=== PATIENT | female | born 1945 | race Caucasian/White ===

== ENCOUNTER 2016-10-23 03:53 | Inpatient (IN) | payer OTHER ==
--- NOTE | ~2016-10-23 | EKG ---
PATIENT: KRISTEL HALEY UNIT #: [id number] Ventricular Rate: 174 BPM Atrial Rate: 174 BPM QRS Duration: 80 ms Q-T Interval: 228 ms QTC Calculation(Bezet): 387 ms Calculated R [place]: 24 degrees Calculated T [place]: -138 degrees Diagnosis Line: Atrial fibrillation with rapid ventricular Diagnosis Line: response Diagnosis Line: Marked ST abnormality, possible inferior Diagnosis Line: subendocardial injury Diagnosis Line: Abnormal ECG Diagnosis Line: When compared with ECG of 23-OCT-2016 08:58, Diagnosis Line: Atrial fibrillation has replaced Sinus rhythm Diagnosis Line: Vent. rate has increased BY 89 BPM Diagnosis Line: ST now depressed in Anterior leads Diagnosis Line: Significant changes have occurred Diagnosis Line: Confirmed by LAURI CORRIGAN MD ([id number]) on Diagnosis Line: 10/30/2016 3:53:37 PM INTERPRETING MD: SIS
--- NOTE | ~2016-10-23 | A ---
[facility] Nutrition Therapy DATE: 11/02/16 Patient: KRISTEL HALEY Physician: ROSELYN Address: [address] [facility] Room/Bed: [address] [place] [address], Zip: [place] [address] Admit Date: 10/23/16 Date of : 46 Height: 5 3 Weight: 211 96 NUTRITIONAL ASSESSMENT: REASON: LOS NUTRITION ASSESSMENT 70 yo female admitted for abdominal pain 2' fecal impaction PMH: COPD, obese, hypothyroid, HTN, IBS, anemia, BL knee arthritis, psoriasis, MEDHAT, HLD, smoker, tricuspid regurgitation, GERD, chronic immobility Anthropometrics: Ht: 63" Adm wt: 98.2 kg BMI: 38.3 Wt 11/02: 96 kg Labs: K+ 3.4 Gluc 134 GFR 57.5 Meds: NaCl, furosemide, phenergan, miralax, synthroid, protonix, zofran, prednisone I/O & Bowel function: 1168/4625, last BM 11/01- diarrhea noted Skin Integrity: Psoriasis rash BLE/ BUE Bruises BUE Edema: none noted Diet: NPO for heart cath Assessment: Chart reviewed, events noted. 70 yo female admitted for abdominal pain d/t fecal impaction. Pt seen for LOS nutrition assessment. Pt is currently NPO awaiting heart cath procedure, and was ordered a consistent carbohydrate/ 1800 kcal diet prior to that. RD unsure why the pt was placed on a consistent carb diet, as she has no apparent history of DM. It is possible that she was placed on this diet due to medication induced hyperglycemia (prednisone noted). Of note, the pt is now s/p colonscopy and polypectomy. EGD results reveal mild diverticulosis. RD spoke with the pt at bedside. Pt denies having any h/o DM, and states that she thought she was on a heart healthy diet. Pt reports poor appetite and ~50% intake of meals, and denies any weight loss besides any she may have lost since admission. When RD inquired about the pt's decreased appetite she stated "I just want to go home". RD encouraged adequate nutritional intake, use of heart healthy and increased fiber diet strategies due to fecal impaction and diverticulosis. Pt voiced understanding, and is agreeable to Magic Cup supplements. RD will order once the pt's diet advances. Dx: Suboptimal nutritional intake RT decreased appetite, pt desire to go home AEB pt reported ~50% intake of meals. [facility] Nutrition Therapy DATE: 11/02/16 Patient: KRISTEL Washington TERA Physician: ROSELYN Address: [address] [place] [address] Room/Bed: [address], Zip: [place] [address] Admit Date: 10/23/16 Date of : 46 Height: 5 3 Weight: 211 96 Intervention: 1. Heart healthy diet with adequate fiber once diet resumed 2. Magic Cup BID 3. Supplement fiber as needed Monitoring, Evaluation and Goals: 1. Oral intake; tolerate >50% of meals 2. GI; promote regular GI function 3. Weight; prevent unintentional weight loss, promote gradual weight loss once as appropriate Recommendations: 1. Once diet is resumed, discontinue consistent carbohydrate restriction and add heart healthy restriction to diet. 2. Encouraged adequate fiber intake as instructed by RD. Pt may benefit from supplemental fiber to promote regular GI function. 3. Once the pt's diet is resumed, please order Magic Cup BID for supplemental nutrition. Pt is at mild nutritional risk. RD will follow up per protocol. Respectfully, JUD MICHELLE RD, LD [facility] cc: client file
--- NOTE | ~2016-10-23 | DS ---
Unit #: [id number] #: [id number] Patient: KRISTEL HALEY [id number] [address] [place], [place] [address] [id number] I MR#: [id number] NAME: KRISTEL HALEY. ROOM: 323 Age: 70 Sex: F Admission Date: 10/23/2016 : 1945 Discharge Date: 11/03/2016 Attending Physician: Cely Greenfield M.D. DISCHARGE SUMMARY REASON FOR ADMISSION Fecal impaction/abdominal pain. Please see Discharge Summary dictated from October 28, 2016, for initial part of the hospital stay. Patient was clinically stable for discharge. Unfortunately, on a rhythm strip she began developing (1) fibrillation with a rapid ventricular response. Therefore, cardiology services were asked to reevaluate the patient. Unfortunately, she could not be placed on anticoagulation secondary to her decreased hemoglobin between 7 to 8. Therefore, recommendation was made for the patient to undergo lower colonoscopy. We asked Dr. Nye to reevaluate the patient, and on October 30, 2016, patient underwent colonoscopy which did reveal a single polyp in the proximal descending colon. Diverticulosis was noted. Otherwise, there was no other acute process. This cleared the way for the patient to undergo cardiac catheterization which she underwent yesterday which showed only minimal disease. Please see cardiac catheterization report for complete details. This was performed by Dr. Prescott. Patient was subsequently cleared from a cardiac standpoint for discharge. Today, her hemoglobin currently stands at 11.2. It is noted that she does have a decreased MCV at 69. Clinically speaking, she is stable to be transitioned to rehab. She requires extensive followup as detailed above. FINAL DISCHARGE DIAGNOSES 1. Abdominal pain on admission, now resolved. 2. Fecal impaction on admission, now resolved. 3. Atrial fibrillation with rapid ventricular response. 4. Dyspnea likely secondary to chronic deconditioning. 5. Anemia, baseline hemoglobin between 9 and 10. 6. Severe morbid obesity. 7. Chronic immobility syndrome. 8. Anemia multifactorial in origin. 9. Iron deficiency. 10. Severe chronic obstructive pulmonary disease, end-stage, on home oxygen. 11. Probable obstructive sleep apnea. 12. Moderate pulmonary hypertension. 13. Moderate to severe tricuspid regurgitation. 14. Psoriasis. 15. Possible psoriatic arthritis. Unit #: [id number] #: [id number] Patient: KRISTEL HALEY 16. Hypothyroidism. 17. Hyperlipidemia. 18. Hypertension. 19. Acute kidney injury, now resolved. 20. Tobacco abuse. 21. Major depressive disorder. 22. Bilateral knee osteoarthritis. 23. Significant anxiety/generalized anxiety disorder. FINAL DISCHARGE MEDICATIONS 1. DuoNeb aerosol solution q.6 hours scheduled. 2. Prednisone 40 mg p.o. q.a.m. x5 days. 3. Amiodarone 200 mg p.o. daily. 4. Cymbalta 60 mg p.o. daily. 5. Benadryl 25 mg p.o. b.i.d. p.r.n. 6. Phenergan 12.5 mg p.o. q.4 p.r.n. 7. Lipitor 80 mg p.o. at bedtime. 8. NicoDerm transdermal 21 mg q.24. 9. Dulera 200/5 at 2 puffs b.i.d. 10. MiraLax as directed daily. 11. Lasix 40 mg p.o. b.i.d. 12. Hydralazine 50 mg p.o. b.i.d. 13. Melatonin 3 mg p.o. at bedtime. 14. Aspirin 81 mg p.o. daily. 15. Prilosec 40 mg p.o. daily. 16. Potassium chloride 20 mEq p.o. daily. 17. Daliresp 500 mcg p.o. daily. 18. Synthroid 100 mcg p.o. daily. 19. [place] 5/325 at 1 tablet p.o. q.6 p.r.n. DISCHARGE CONDITION Stable. DISCHARGE DISPOSITION Rehab. FOLLOWUP As detailed above. Dictated by... Praveen Marcelino/corrine TD: 11/03/2016 14:21 JOB #: [id number] DISCHARGE SUMMARY Page 1 of 1 X Cely Greenfield MD X DISCHARGE SUMMARY
--- NOTE | ~2016-10-23 | OR ---
Unit #: [id number] #: [id number] Patient: KRISTEL HALEY [id number] [address] [place], [place] [address] [id number] I MR#: [id number] NAME: KRISTEL HALEY ROOM: 323 Date of Procedure: 10/25/2016 Admission Date: 10/23/2016 Surgeon: Braydon Nye M.D. : 1945 Attending Physician: Cely Greenfield M.D. OPERATIVE REPORT PRIMARY CARE PHYSICIAN Dr. Cely Greenfield. PREOPERATIVE DIAGNOSIS Severe iron deficiency anemia. PROCEDURE PERFORMED Upper gastrointestinal endoscopy. POSTOPERATIVE DIAGNOSIS Diagnose completely normal examination up to third part of duodenum. RECOMMENDATIONS The patient is not a surgical candidate therefore suggest to manage with symptomatic treatment for now. Also, resume 1800 calorie CCD diet. SEDATION USED MAC. DESCRIPTION OF PROCEDURE Following detailed explanation of the potential risks and complications of an upper endoscopy, namely perforation, bleeding, and complication related to sedation, the patient was brought to GI lab and laid in the left lateral decubitus position. Lubricated tip of the Olympus video upper endoscope was passed through the bite block into the proximal esophagus under direct vision. The entire esophageal mucosa was examined and appeared normal. Z-line was nicely demarcated, there being no esophagitis or hiatus hernia. The scope was then advanced into the gastric cavity and the latter was insufflated. Mucosa of the fundus, body, and antrum was examined and appeared unremarkable. Pylorus was intubated with visualization of the normal duodenal bulb and second and third part of the duodenum. Upon withdrawal and retroflexion; incisura, cardia, and greater curve was examined and no additional findings were noted. The scope was then withdrawn in the distal esophagus. Entire esophageal mucosa was examined all the way up to pharynx. No additional findings were noted. The patient tolerated the procedure without any postprocedure complications. Dictated by... Braydon Nye M.D. Unit #: [id number] #: [id number] Patient: KRISTEL HALEY RIZWANA/joel TD: 10/29/2016 17:07 JOB #: [id number] Brenda Bhakta M.D. OPERATIVE REPORT Page 1 of 1 X Braydon Nye MD PROCEDURE OPERATIVE NOTE
--- NOTE | ~2016-10-23 | DS ---
Unit #: [id number] #: [id number] Patient: KRISTEL HALEY [id number] [address] [address] [id number] MR#: [id number] NAME: KRISTEL HALEY. ROOM: 323 Age: 70 Sex: F Admission Date: 10/23/2016 : 1945 Discharge Date: 11/04/2016 Attending Physician: Cely Greenfield M.D. Primary Care Physician: No Primary Care Physician DISCHARGE SUMMARY THIRD DISCHARGE ADDENDUM Please see the above 2 discharge summaries for details of hospital course. Overnight while we were awaiting our precertification for rehab placement, patient became very agitated, belligerent at staff members, refused to work with therapy, and stated that she no longer wished to go to rehab. She no longer wished to be in the hospital. She also stated that she wanted to go home. I tried to discuss with her the importance of going to rehab, and the importance of trying to ambulate again. She expressed understanding, and stated that she wished to go home. She understood the long-term consequences, and therefore, at this point in time, secondary to the patient's wishes, the patient will be discharged home. Overall, her long-term prognosis is very poor. Her life expectancy is likely less than 6 months. This has been reviewed with patient in detail. She states that she will "think about taking her medications." FINAL DISCHARGE DIAGNOSIS Please see above. FINAL DISCHARGE MEDICATIONS Remain unchanged. Dictated by... Praveen Marcelino/isamar TD: 11/04/2016 19:53 JOB #: [id number] DISCHARGE SUMMARY Page 1 of 1 X Cely Greenfield MD X DISCHARGE SUMMARY
--- NOTE | ~2016-10-23 | CR170 ---
[facility] A Service of [facility] & [facility] RADIOLOGY TEXT RESULTS PATIENT: KRISTEL HALEY LOCATION: [facility] 323-01 : [birth year] UNIT #: [id number] AGE: [address]: Evelina Mejia MD SEX: F ORDER DR: [id number] [facility] [address]. [place], [place] [address] [id number] I MR#: [id number] Acc #: [id number] NAME: KRISTEL HALEY. : 1945 SEX: F STUDY DATE/TIME: 10/24/2016 14:33 UNIT: [address] ROOM: [facility] STUDY DESCRIPTION: CR Knee 2 Views Rt Attending Physician: Evelina Mejia M.D. Ordering Physician: Cely Greenfield M.D. Primary Care Physician: No Primary Care Physician MEDICAL IMAGING REPORT This report is preliminary unless electronic signature is present EXAM Right knee, 2 views, 10/24/16. COMPARISON 09/05/15 CLINICAL HISTORY Right knee pain, symptoms new onset today and unable to move. FINDINGS There are advanced degenerative changes and there is osteopenia, but there is no fracture or apparent joint effusion. Dictated by... Harrison Zacarias M.D. THIS IS AN ELECTRONICALLY VERIFIED REPORT Harrison Zacarias M.D. at 10/24/2016 10:46 PM ALEXIA/isamar TD: 10/24/2016 21:39 JOB #: [id number] MEDICAL IMAGING REPORT Page 1 of 1 COPY
--- NOTE | ~2016-10-23 | EKG ---
PATIENT: KRISTEL HALEY UNIT #: [id number] Ventricular Rate: 68 BPM Atrial Rate: 68 BPM P-R Interval: 122 ms QRS Duration: 84 ms Q-T Interval: 372 ms QTC Calculation(Bezet): 395 ms P [place]: 61 degrees Calculated R [place]: 28 degrees Calculated T [place]: 49 degrees Diagnosis Line: Sinus rhythm with Premature supraventricular Diagnosis Line: complexes Diagnosis Line: When compared with ECG of 29-OCT-2016 00:19, Diagnosis Line: (unconfirmed) Diagnosis Line: Sinus rhythm has replaced Atrial fibrillation Diagnosis Line: Vent. rate has decreased BY 106 BPM Diagnosis Line: ST no longer depressed in Inferior leads Diagnosis Line: ST no longer depressed in Anterolateral leads Diagnosis Line: T wave inversion no longer evident in Inferior Diagnosis Line: leads Diagnosis Line: Nonspecific T wave abnormality has replaced Diagnosis Line: inverted T waves in Lateral leads Diagnosis Line: Confirmed by LAURI CORRIGAN MD ([id number]) on Diagnosis Line: 10/30/2016 4:13:57 PM INTERPRETING MD: SIS
--- NOTE | ~2016-10-23 | CO ---
Unit #: [id number] #: [id number] Patient: KRISTEL HALEY [id number] [address] [place], [place] [address] [id number] I MR#: [id number] NAME: KRISTEL HALEY. ROOM: 323 Age: 70 Sex: F Admission Date: 10/23/2016 : 1945 Attending Physician: Cely Greenfield M.D. Consultation Date: 10/25/2016 CONSULTATION REPORT REASON FOR CONSULTATION Murmur and usfonmbo-sk-oasmqx tricuspid regurgitation. HISTORY OF PRESENT ILLNESS The patient is a 70-year-old female, who does not have a senior it engineer. She denies ever having any history of irregular heart rhythm, myocardial infarction, or cardiac catheterization. The patient does report that she has been told that she has a heart murmur for approximately 25 years. On 10/24/2016, the patient had a 2D echocardiogram done, which showed an EF of 60%, impaired LV relaxation, moderately dilated RV, vjupfplx-eh-jvusml TR with an RSVP of 58 mmHg. Additional past medical history includes hypertension, hyperlipidemia, irritable bowel syndrome, GERD, psoriasis, depression, and obesity. Apparently, she does also have a history of obstructive sleep apnea and she is noncompliant with CPAP. The patient endorses that she has been smoking one pack of cigarettes per day since the age of 13. The patient presented to the hospital. She had a 1 week history of intermittent pain "on the lateral sides of her stomach." At first, the patient reported that she is concerned about having like issues with her kidney. She denies any vomiting or diarrhea. She did report that her last bowel movement was four days prior to admission. The patient does endorse that she typically does fluctuate between diarrhea and constipation because of her irritable bowel syndrome. She does report that she took jcrn-vxr-qomfdrf antidiarrheal medications and subsequently, has had no more bowel movements. She denies any fever, cough, shortness of breath, or chest pain. She also has noticed a little bit of decreased urine output. In the emergency department, the patient's initial pulse was found to be 118 and blood pressure is 169/83. CT scan of the abdomen and pelvis shows extensive fecal burden throughout the colon, consistent with constipation. She was manually disimpacted. She was admitted to [facility] for further evaluation. She was given a total of 2 L of normal saline and started on 4.5 g of Zosyn. Cardiology was consulted for her heart murmur and this findings of indbntqp-fo-vzqhrb tricuspid regurgitation on 2D echocardiogram from 10/24/2016. PAST MEDICAL HISTORY 1. 2D echocardiogram from 10/24/2016 shows an EF of 60%, impaired LV relaxation, moderately dilated RV, bomuhfie-ya-zpyxdd TR with an RSVP of 58 mmHg. 2. Hypertension. 3. Hyperlipidemia. Unit #: [id number] #: [id number] Patient: KRISTEL HALEY 4. Murmur x25 years. 5. Hypothyroidism. 6. Irritable bowel syndrome. 7. GERD. 8. Psoriasis. 9. Depression. 10. Noncompliant with CPAP. 11. Obesity. 12. Tobaccoism. PAST SURGICAL HISTORY 1. EGD and colonoscopy. 2. Left breast biopsy. 3. Left ankle surgery. ALLERGIES Sulfa and cimetidine. HOME MEDICATIONS Synthroid 75 mcg p.o. daily; aspirin 81 mg p.o. daily; Prilosec 40 mg p.o. daily; atorvastatin 80 mg p.o. daily; Cymbalta 60 mg p.o. daily; diphenhydramine 25 mg p.o. daily p.r.n.; and pain medication, type unknown. FAMILY HISTORY The patient endorses that her mother had COPD. Denies any cardiac history. SOCIAL HISTORY The patient lives with her son. She smokes approximately one pack of cigarettes per day and has been smoking since the age of 13. She denies any alcohol abuse. She uses a wheelchair. REVIEW OF SYSTEMS A 10-point review of systems has been done and this has been felt otherwise negative unless indicated in the HPI. PHYSICAL EXAMINATION GENERAL: The patient is awake, alert, in no acute distress. VITAL SIGNS: Temperature 97.8, heart rate 69, respirations 18, and blood pressure 142/54. She is oxygenating 98%. HEENT: Head is atraumatic and normocephalic. Pupils are equal, round, and reactive. Extraocular movements are intact. No discharge from ears or nares. NECK: Supple. Trachea is midline. Negative JVD. Normal carotid upstrokes. No lymphadenopathy or thyromegaly appreciated. CHEST: Diminished with expiratory wheezes. No rhonchi. CARDIOVASCULAR: S1 and S2. Regular rate and rhythm. No gallops are appreciated. The patient has a 2/6 systolic murmur. ABDOMEN: Soft, nontender, and nondistended. Bowel sounds are positive in all four quadrants. SKIN: Appears to be warm and dry. She does have psoriasis and plaques throughout her body. EXTREMITIES: No clubbing, edema, or cyanosis. NEUROLOGIC: The patient is alert and oriented x3. She is pleasant and conversant with no focal deficits. DIAGNOSTIC STUDIES LABORATORY RESULTS: White blood cells 10.5, hemoglobin 7.4, hematocrit 24.7, and platelets 200. Sodium 138, potassium 3.4, chloride 106, CO2 of Unit #: [id number] #: [id number] Patient: KRISTEL HALEY 25, BUN 17, creatinine 1, glucose 124. TSH is 4.92. CRP is 3.7. CARDIOVASCULAR STUDIES: EKG shows sinus rhythm. IMAGING STUDIES: CT scan of her abdomen and pelvis shows extensive burden throughout the colon. There is no evidence of mechanical bowel obstruction. ASSESSMENT 1. Fecal impaction. 2. Vobxqfop-ct-nghqgy pulmonary hypertension. 3. Severe chronic obstructive pulmonary disease. 4. Tricuspid regurgitation. 5. Left ventricular ejection fraction is 60% per echo on 10/24/2016. 6. Hypothyroidism. 7. Hypertension. 8. Hyperlipidemia. 9. Irritable bowel syndrome. 10. Psoriasis. 11. Tobaccoism. PLAN At this time, we will check a BMP, magnesium, and lipid panel in the morning. We will give the patient Solu-Medrol stat for her wheezing. She will need a short course of steroids to treat bronchospasm. May need to consider a Lexiscan when her lung sounds better. She has been encouraged to quit smoking. Dictated by... Dafne Villar A.P.R.N. for Adam Childs M.D. AM/joel TD: 10/26/2016 13:37 JOB #: [id number] CONSULTATION REPORT Page 1 of 1 X Dafne Villar APRN X CONSULTATION REPORT
--- NOTE | ~2016-10-23 | CT4 ---
[facility] A Service of [facility] & [facility] RADIOLOGY TEXT RESULTS PATIENT: KRISTEL HALEY LOCATION: [facility] 323-01 : [birth year] UNIT #: [id number] AGE: [address]: Evelina Mejia MD SEX: F ORDER DR: [id number] [place] [id number] [facility]. [place], [place] [address] [id number] MR#: [id number] Acc #: [id number] NAME: KRISTEL HALEY. : 1945 SEX: F STUDY DATE/TIME: 10/23/2016 7:36 UNIT: TOM ROOM: STUDY DESCRIPTION: CT Abd and Pelv Wo Cont Attending Physician: Tha Florentino M.D. Ordering Physician: Gracia Thao M.D. Primary Care Physician: Primary Care Physician No MEDICAL IMAGING REPORT This report is preliminary unless electronic signature is present EXAM CT of the abdomen and pelvis without contrast INDICATION Mid abdominal pain and no bowel movement for [address] images obtained from the diaphragm through symphysis pubis. No oral or intravenous contrast material was administered in this patient with a history of constipation. This CT exam was performed with one or more of the following radiation dose reduction techniques: automatic exposure control, adjustment of mA and/or kV according to patient size, and iterative reconstruction. FINDINGS Images through the lung bases demonstrates some background emphysematous changes. The stomach and proximal small bowel are within normal limits. The liver appears unremarkable given unenhanced technique. The gallbladder and spleen are normal as is the pancreas. The patient probably has a parapelvic cyst on the right. Left kidney appears normal as are the adrenal glands. No free fluid or adenopathy is seen within the abdomen. There is no evidence mechanical bowel obstruction. Uterus is surgically absent. Urinary bladder appears normal. Patient does have extensive fecal burden seen throughout the colon in keeping with history of constipation, but again there is no evidence of mechanical small bowel obstruction. No free fluid or adenopathy is seen within the pelvis. Review of bone windows does not demonstrate any aggressive osseous abnormalities. [facility] A Service of [facility] RADIOLOGY TEXT RESULTS PATIENT: KRISTEL HALEY LOCATION: [facility] 323-01 : [birth year] UNIT #: [id number] AGE: [address]: Evelina Mejia MD SEX: F ORDER DR: IMPRESSION 1. Patient is noted to have extensive fecal burden seen through the colon in keeping with history of constipation. However there is no evidence of mechanical bowel obstruction. 2. Parapelvic right renal cyst. 3. Changes of prior hysterectomy. Dictated by... Mirta Balderas M.D. THIS IS AN ELECTRONICALLY VERIFIED REPORT Mirta Balderas M.D. at 10/23/2016 5:53 PM KATRINA/angie TD: 10/23/2016 09:05 JOB #: [id number] MEDICAL IMAGING REPORT Page 1 of 1 COPY
--- NOTE | ~2016-10-23 | CR72 ---
[facility] A Service of [facility] RADIOLOGY TEXT RESULTS PATIENT: KRISTEL HALEY LOCATION: [facility] : 47 UNIT #: [id number] AGE: [address]: Cely Greenfield MD SEX: F ORDER DR: [id number] [facility] [address] [facility] [address]. [place], [place] [address] [id number] MR#: [id number] Acc #: [id number] NAME: KRISTEL HALEY. : 1945 SEX: F STUDY DATE/TIME: 10/30/2016 10:18 UNIT: [address] ROOM: [facility] STUDY DESCRIPTION: CR Chest Single View Portable Attending Physician: Cely Greenfield M.D. Ordering Physician: Robert Ahn M.D. Primary Care Physician: No Primary Care Physician MEDICAL IMAGING REPORT This report is preliminary unless electronic signature is present EXAM Portable chest. 10/30/16 HISTORY Respiratory failure FINDINGS AP right anterior oblique view of the chest presented. COMPARISON STUDIES 03/15/07 FINDINGS Dextroscoliosis of the thoracic spine. Heart mildly enlarged. Lung volumes low. Mildly prominent pulmonary vasculature. Mild linear interstitial prominence in the lungs, more pronounced mid to lower lung zones. Increased peribronchial markings in the central lung zones. The appearance is somewhat nonspecific. Mild interstitial edema could be considered. Bronchitis/ reactive airway disease could be considered. There is no dense airspace disease, pleural effusion or pneumothorax, and no suspicious nodule. Calcified granuloma at the left lung base is stable. Dictated by... Lorenzo Mcdonald M.D. THIS IS AN ELECTRONICALLY VERIFIED REPORT Lorenzo Mcdonald M.D. at 11/04/2016 10:14 AM HARINI/grayson TD: 10/30/2016 12:27 JOB #: [id number] [facility] A Service of [facility] RADIOLOGY TEXT RESULTS PATIENT: KRISTEL HALEY LOCATION: [facility] : 47 UNIT #: [id number] AGE: [address]: Cely Greenfield MD SEX: F ORDER DR: MEDICAL IMAGING REPORT Page 1 of 1 COPY
--- NOTE | ~2016-10-23 | OR ---
Unit #: [id number] #: [id number] Patient: KRISTEL HALEY [id number] [address] [place], [place] [address] [id number] I MR#: [id number] NAME: KRISTEL HALEY ROOM: 323 Date of Procedure: 10/30/2016 Admission Date: 10/23/2016 Surgeon: Braydon Nye M.D. : 1945 Attending Physician: Cely Greenfield M.D. OPERATIVE REPORT PRIMARY CARE PHYSICIAN Brenda Bhakta M.D. PREOPERATIVE DIAGNOSES Severe iron deficiency anemia. The patient also has history of increasing constipation. PROCEDURES PERFORMED Colonoscopy and polypectomy. POSTOPERATIVE DIAGNOSES 1. Single sessile polyp in the proximal descending colon. This was about a centimeter in size and was removed using snare cautery polypectomy. 2. Mild sigmoid and descending colon diverticulosis. 3. Rest of the examination up to cecum and terminal ileum was normal. The quality of the prep was good. No angiodysplasias or vascular malformations were present, and no colon cancer was present. RECOMMENDATIONS The patient can be started on anticoagulation from cardiac standpoint if needed. There is no contraindication to use of anticoagulation. She has already received intravenous iron infusions and should stay on oral iron. SEDATION USED MAC. DESCRIPTION OF PROCEDURE Following detailed explanation of the potential risks and complications of a colonoscopy, namely perforation, bleeding, and complications related to sedation, the patient was brought to GI lab and laid in the left lateral decubitus position. A digital rectal examination was performed, which was normal. Lubricated tip of the Olympus video colonoscope was inserted through the anus and advanced under direct vision. The scope was advanced past rectosigmoid into descending colon. Multiple small to medium-sized diverticula were seen in this area. The scope tip was then navigated all the way up to cecum with visualization of the ileocecal valve and the appendiceal orifice. Last few inches of the terminal ileum were also visualized after intubation of the ileocecal valve and appeared normal. Successive segments of the colonic mucosa were examined upon withdrawal and appeared unremarkable except for a single sessile polyp in the proximal descending colon. This was 1 cm to 1.2 cm in size. It was removed using snare cautery polypectomy. The polyp was retrieved after Unit #: [id number] #: [id number] Patient: KRISTEL HALEY removal and sent for histology. Excellent hemostasis was achieved and photodocumentation was obtained. No additional polyps were noted. The patient did not have any angiodysplasias. Other than the left-sided diverticulosis, no additional abnormalities were noted. The patient did not have any hemorrhoids at anal verge. The scope was then withdrawn and the patient returned to recovery area. She tolerated the procedure without any postprocedure complications. Dictated by... Praveen Dinero/joel TD: 10/30/2016 15:36 JOB #: [id number] Brenda Bhakta M.D. OPERATIVE REPORT Page 1 of 1 X Braydon Nye MD X PROCEDURE OPERATIVE NOTE
--- NOTE | ~2016-10-23 | CO ---
Unit #: [id number] #: [id number] Patient: KRISTEL HALEY [id number] [facility]. [place], [place] [address] [id number] I MR#: [id number] NAME: KRISTEL HALEY. ROOM: 323 Age: 70 Sex: F Admission Date: 10/23/2016 : 1945 Attending Physician: Cely Greenfield M.D. CONSULTATION REPORT HISTORY OF PRESENT ILLNESS This is a pleasant 70-year-old lady, who is admitted to the hospital for bowel problems. She has a long history of irritable bowel syndrome and other medical problems. She had about a week history of abdominal pain, so she came to the ER concerned that she may have a bowel obstruction. While here, it was found that she is anemic and has other medical problems and is currently scheduled for an EGD today. We have been asked to see her for her knees. She has had a long history over 20 years of knee arthritis. She used to see Dr. Escobar before he moved to [place]. She has had steroid injections. She states that at home, she uses an electric scooter to get around. She walks very little. She also has some hip pain. PAST MEDICAL HISTORY Reveal that she has a history of sleep apnea, but does not use her CPAP. She has hypothyroidism, COPD, depression, hyperlipidemia, reflux, and irritable bowel syndrome as well as psoriasis. PAST SURGICAL HISTORY Include ankle surgery in the past, breast surgery, and her EGDs and colonoscopies. SOCIAL HISTORY She lives with her son. She does smoke a pack of cigarettes daily. She denies use of alcohol and as mentioned, she mobilizes with an electric scooter. ALLERGIES She has allergies to sulfa and cimetidine. MEDICATIONS Prilosec, aspirin, Synthroid, Cymbalta, atorvastatin, diphenhydramine. REVIEW OF SYSTEMS HEENT: She denies headaches. Denies blurred vision. She has had no syncopal episodes recently. NECK: She denies any neck pain or swelling. CHEST: She states that she has had no chest pain or shortness of breath. : She has had no frequency or burning on urination. GI: She states she has had abdominal pain mostly on the lateral side or the flank area, but no nausea, vomiting, or diarrhea. EXTREMITIES: Orthopedic complaints include bilateral knees, pain that is aggravated with weightbearing and some lateral hip pain. She denies groin pain. NEUROLOGIC: She denies any numbness, weakness, or loss of muscle strength. Unit #: [id number] #: [id number] Patient: KRISTEL HALEY PHYSICAL EXAMINATION GENERAL: Her exam today reveals that she is alert, awake, resting comfortably in bed. VITAL SIGNS: She is afebrile. Pulse is 69, blood pressure is 142/54. MUSCULOSKELETAL: Her exam of her knees reveals that she does have a small effusion in each knee. Range of motion is about 7 degrees of extension to 100 to 105 degrees of flexion in both knees. Both knees are stable. No erythema is noted and her hips, she has flexion to about 95 to 100 in both hips, full extension abduction of 25 to 30, internal rotation of 5, external rotation of 35 in both hips. IMPRESSION She has chronic osteoarthritis of both knees. I have offered her steroid injections today, but she says she would like to hold off on any treatment of the arthritis until all of her other medical problems were resolved, so she will follow up in the office if she would like to have these injections performed. Dictated by... Praveen Mcclure/joel TD: 10/25/2016 22:56 JOB #: [id number] CONSULTATION REPORT Page 1 of 1 X Mars Gan MD X CONSULTATION REPORT
--- NOTE | ~2016-10-23 | HP ---
Unit #: [id number] #: [id number] Patient: KRISTEL HALEY [id number] [address] [place], [place] [address] [id number] MR#: [id number] NAME: KRISTEL HALEY. ROOM: 323 Age: 70 Sex: F Admission Date: 10/23/2016 : 1945 Attending Physician: Evelina Mejia M.D. Primary Care Physician: No Primary Care Physician HISTORY AND PHYSICAL HISTORY OF PRESENT ILLNESS The patient is a 70-year-old female with past medical history of irritable bowel syndrome, COPD, obstructive sleep apnea, hypothyroidism, GERD, depression, hyperlipidemia, and psoriasis who presented to the emergency department for evaluation of the above. The patient states that she has had a 1-week history of intermittent pain in her sides (lateral abdomen). She states that she was concerned that she had a "kidney problem." She denies any vomiting or diarrhea. Her last bowel movement was four days ago. She typically has diarrhea in association with her irritable bowel syndrome; however, she took an [id number] antidiarrhea medication and subsequently had no further bowel movements. She denies any fever. She has a cough and shortness of breath at baseline. She has also noticed decreased urine output. In the emergency department, initial pulse and blood pressure were 118 and 169/83, respectively. CT of the abdomen and pelvis showed extensive fecal burden throughout the colon in keeping with constipation. She was manually disimpacted. She is being admitted to [facility] for evaluation and further treatment. She was also given a total of 2 liters of normal saline as well as 4.5 g of Zosyn. PAST MEDICAL HISTORY 1. The patient denies any hospitalizations within the past 25 years. 2. Obstructive sleep apnea, noncompliant with CPAP. The patient has seen Dr. Sawyer in the past. 3. COPD with continued tobacco abuse. 4. Hypothyroidism. 5. GERD. 6. Depression. 7. Hyperlipidemia. 8. Irritable bowel syndrome. 9. Psoriasis. PAST SURGICAL HISTORY 1. EGD and colonoscopy. 2. Left breast biopsy. 3. Left ankle surgery. SOCIAL HISTORY Patient lives with her son. She smokes a pack of cigarettes daily. She denies alcohol use. She is in a wheelchair. FAMILY HISTORY Unit #: [id number] #: [id number] Patient: KRISTEL HALEY Notable for her mother having COPD. ALLERGIES Sulfa and cimetidine. HOME MEDICATIONS 1. Synthroid 75 mcg daily. 2. Aspirin 81 mg daily. 3. Prilosec 40 mg daily. 4. Atorvastatin 80 mg daily. 5. Cymbalta 60 mg daily. 6. Diphenhydramine twice daily p.r.n. 7. Unknown pain medication. REVIEW OF SYSTEMS A complete review of systems is negative, except as indicated in HPI. The patient denies any blood in the stool. No black tarry stool. She has not had any recent change in her medications. She stated that she was on an unknown "water pill" that is not on the med rec. She states that she takes it p.r.n. and she has been taking it up to three times a day due to decreased urine output. She has noticed decreased urine output over the past couple of days. DIAGNOSTIC STUDIES CARDIOVASCULAR: EKG shows normal sinus rhythm, sinus arrhythmia, and a rate of 85 beats per minute. IMAGING: CT of the abdomen and pelvis shows extensive fecal burden throughout the colon. There is no evidence of mechanical bowel obstruction. LABORATORY: Complete blood count notable for white blood cell count of 19.4; hemoglobin and hematocrit 10.4 and 35.2, respectively; MCV is 60.1; and RDW is 19.8. Comprehensive metabolic panel notable for sodium of 133; glucose is 162; BUN and creatinine 23 and 1.6, respectively; and alkaline phosphatase is 117. Lipase 21. Lactic acid 2.8. Urinalysis essentially normal. Troponin is 0.05. CK is 75. PHYSICAL EXAMINATION VITAL SIGNS: Temperature is 97.7, pulse 118, respirations 17, blood pressure 169/83, and oxygen saturation 98% on room air. GENERAL: The patient is a female who is awake and alert and in no acute distress. HEENT: The head is atraumatic. Mucous membranes are moist. NECK: Supple. Trachea is midline. CARDIOVASCULAR: Regular rate and rhythm. LUNGS: Clear to auscultation bilaterally with no increased work of breathing. ABDOMEN: Soft and nontender with bowel sounds present in all four quadrants. EXTREMITIES: Nontender with no pedal edema. NEUROLOGIC: The patient is awake and alert. She follows commands. PSYCH: Mood and affect are normal. The patient is cooperative. SKIN: Demonstrates changes of psoriasis on the arms and legs. ASSESSMENT The patient is a 70-year-old female with: 1. Abdominal pain. CT showed extensive fecal burden. She was Unit #: [id number] #: [id number] Patient: KRISTEL HALEY disimpacted in the emergency department. White blood cell count is 19.4 and lactic acid is 2.8 concerning for possible intraabdominal infection. She received Zosyn in the emergency department. 2. Sepsis with an initial lactic acid of 2.8. 3. Fecal impaction, status post disimpaction. 4. Acute kidney injury. The patient's creatinine is 1.6. It was 0.9 on October 23, 2011. 5. Microcytic anemia. 6. History of irritable bowel syndrome. 7. COPD with continued tobacco abuse. 8. Obstructive sleep apnea, noncompliant with CPAP. 9. Hypothyroidism. 10. GERD. 11. Depression. 12. Hyperlipidemia. 13. Psoriasis. PLAN 1. Admit to intermediate level. 2. Blood cultures x2. 3. Zosyn 3.375 g IV q.6 hours pending further workup. 4. Sepsis protocol with repeat lactic acid. 5. P.R.N. morphine. 6. P.R.N. Zofran. 7. NPO and will advance to clears as tolerated. 8. Normal saline at 75 mL/hour. 9. Fleets enema x1 now. 10. MiraLAX daily p.r.n. 11. Hemoccult stool.. 12. Iron studies, B12 and folate. 13. TSH 14. SCDs for DVT prophylaxis. 15. Serial cardiac enzymes. 16. Repeat labs in the morning. 17. Additional workup and consultants based on above. Dictated by Praveen Allison/john TD: 10/23/2016 11:41 JOB #: [id number] HISTORY AND PHYSICAL Page 1 of 1 X Evelina Mejia MD HISTORY AND PHYSICAL
--- NOTE | ~2016-10-23 | DS ---
Unit #: [id number] #: [id number] Patient: KRISTEL HALEY [id number] [address] [address] [id number] I MR#: [id number] NAME: KRISTEL HALEY. ROOM: 323 Age: 70 Sex: F Admission Date: 10/23/2016 : 1945 Discharge Date: 10/28/2016 Attending Physician: Cely Greenfield M.D. Primary Care Physician: No Primary Care Physician DISCHARGE SUMMARY REASON FOR ADMISSION Abdominal pain, fecal impaction. HISTORY OF PRESENT ILLNESS/HOSPITAL COURSE The patient is a very pleasant 70-year-old female who is essentially bedridden/homebound. She presented with increased abdominal pain and/or flank discomfort. While she was evaluated in the emergency room she underwent a CT of the abdomen and pelvis which did show extensive fecal burden throughout the colon, keeping with acute constipation. Subsequently she was manually disimpacted while evaluated in the emergency room. She was subsequently admitted and placed on telemetry floor. It was noted that her iron studies were significantly decreased and she did have a decreased hemoglobin of approximately 10.4 on the day of admission. Her MCV was also noted to be close to 60. Secondary to chronic constipation as well as anemia, consultation was placed to Dr. Nye of gastroenterology services. The patient ultimately underwent upper GI endoscopy which showed gastritis, mild, but no acute findings. Consideration was made for colonoscopy. However, secondary to associated comorbid conditions this decision was deferred as an outpatient at a later point in time. Today her hemoglobin currently stands at 7.4. She will receive two units of packed red blood cells and then consideration will be given for her to be discharged afterward. Secondary to essentially being bedbound as well as profound dyspnea, which likely is multifactorial in origin secondary to chronic deconditioning anemia, as well as her history of chronic obstructive pulmonary disease, the patient underwent a two-dimensional echocardiogram, as read by Dr. Childs of the cardiology services. It did show a moderate to severe tricuspid regurgitation with moderate pulmonary hypertension. This subsequently prompted a cardiology consultation. Cardiology stated it would be ideal for the patient to have a Lexiscan stress test. Unfortunately, the patient was unable to lie flat secondary to comorbid conditions and, therefore, cardiology said optimizing medical management and following up as an outpatient would be ideal. The patient does have a prior history of psoriasis. In her own words she states that she has tried only one treatment. Unfortunately it was pulled from the market, in her own words, but afterward her condition has Unit #: [id number] #: [id number] Patient: KRISTEL HALEY deteriorated rapidly. She feels as though she has psoriatic arthritis as well within her knees. This prompted a consultation with Dr. Maher of dermatology services, who recommended outpatient followup and stated that the patient did have numerous options. He asked the patient to follow up at a later point in time. Also secondary to bilateral knee pain and/or discomfort, Dr. Gan of orthopedics was consulted. He stated the patient would follow up as an outpatient after initiation of psoriasis treatment for evaluation and consideration into bilateral total knee replacements. Secondary to chronic immobility syndrome as well as inability to leave the house, we consulted physical therapy and occupational therapy. Both services did recommend rehab at the time of discharge. Appropriate arrangements will be made for the patient to transition to a rehab at the time of discharge. Although she states that she has not ambulated for two years as well as left her house for two years, there really is no medical indication for her not to ambulate. Therefore, rehab initially will be started. She will follow up with Dr. Zeina Higgins at [facility] in approximately 7-10 days post discharge from the rehab facility. At that point in time coordination with her take away man, orthopedic surgeon as well as storm window installer as an outpatient will continue. It should be noted that at baseline she is on home O2 primarily at night. She has minimal movement and she continues to smoke, which she was counseled on extensively while here. FINAL DISCHARGE DIAGNOSES 1. Abdominal pain secondary to fecal impaction. Likely secondary to chronic immobility syndrome and narcotic use, now resolved. 2. Anemia, multifactorial in origin. Decreased MCV, hemoccult positive stools. Discharge hemoglobin approximately 8-9. 3. Severe chronic obstructive pulmonary disease, endstage on home O2, with ongoing tobacco abuse. 4. Probable obstructive sleep apnea. 5. Moderate pulmonary hypertension. 6. Moderate to severe tricuspid regurgitation. 7. Psoriasis. Questionable psoriatic arthritis. 8. Hypothyroidism. 9. Hyperlipidemia. 10. Hypertension. 11. Acute kidney injury on admission, now resolved. 12. Ongoing tobacco abuse. 13. Morbid obesity. 14. Major depressive disorder. 15. Chronic immobility syndrome. 16. Bilateral knee arthritis. Likely mixed with osteo versus psoriatic. FINAL DISCHARGE MEDICATIONS 1. Cymbalta 60 mg p.o. daily. 2. Benadryl 25 mg p.o. b.i.d. p.r.n. 3. Lipitor 80 mg p.o. at nighttime. 4. Symbicort 160/4.5 two puffs b.i.d. 5. Norvasc 5 mg p.o. daily. 6. MiraLAX 17 g mixed with 8 ounces of water daily. Unit #: [id number] #: [id number] Patient: KRISTEL HALEY 7. Aspirin 81 mg p.o. daily. 8. Prilosec 40 mg p.o. daily. 9. Synthroid 100 mcg p.o. daily. DISCHARGE CONDITION Stable. DISPOSITION Rehab. LONG-TERM PROGNOSIS Dependent on the patient's overall ability to tolerate rehab, as well as if she follows up as an outpatient with her appropriate physicians as outlined above. Dictated by... Cely Greenfield M.D. MILDRED/kori TD: 10/28/2016 11:12 JOB #: [id number] DISCHARGE SUMMARY Page 1 of 1 X Cely rGeenfield MD X DISCHARGE SUMMARY
--- NOTE | ~2016-10-23 | CO ---
Unit #: [id number] #: [id number] Patient: KRISTEL HALEY [id number] [address] [place], [place] [address] [id number] MR#: [id number] NAME: KRISTEL HALEY. ROOM: 323 Age: 70 Sex: F Admission Date: 10/23/2016 : 1945 Attending Physician: Cely Greenfield M.D. Consultation Date: 10/24/2016 CONSULTATION REPORT PRIMARY CARE PHYSICIAN Brenda Bhakta M.D. REASON FOR CONSULTATION Increasing constipation and severe iron deficiency anemia. HISTORY OF PRESENT ILLNESS Ms. Haley is a 70-year-old white female, who has longstanding history of COPD and obstructive sleep apnea. The patient presented with history of fecal impaction along with pain in the lower abdomen. She mentions having had diarrhea in the past from irritable bowel; however, lately she has been severely constipated and she says she has taken ylhq-vms-bvcollc antidiarrheals for diarrhea and subsequently became constipated at the point of fecal impaction. Her initial CT scan in the emergency room showed extensive fecal loading of the colon, she required manual disimpaction. PAST MEDICAL HISTORY Significant for COPD, continued tobacco abuse, obstructive sleep apnea. The patient not compliant with CPAP machine, hypothyroidism, depression, hyperlipidemia, irritable bowel syndrome, psoriasis, and GERD. PAST SURGICAL HISTORY Included left ankle surgery and left breast biopsy. SOCIAL HISTORY Lives with her son. Smokes a pack of cigarette daily. Does not drink alcohol. She has not moved out of home over the past 2 years, mostly inbound on a wheelchair. FAMILY HISTORY Mother had COPD. ALLERGIES Sulfonamides and cimetidine. MEDICATIONS At home included diphenhydramine, Cymbalta, atorvastatin, Prilosec, aspirin, Synthroid, and pain medication. REVIEW OF SYSTEMS Detailed review of organ systems does not reveal any recent weight loss. There is no history of fever, chills, or rigors. No history of headache, seizures, chest pain, or syncope. No history of cough, expectoration, or Unit #: [id number] #: [id number] Patient: KRISTEL HALEY hemoptysis. No history of dysuria, hematuria, or pyuria. No history of focal seizures or extremity weakness. There is no history of overt GI bleed. No history of dysuria, hematuria, or pyuria. No history of skin rash, aphthous ulcer in mouth, reactive arthritis. The patient does mention history of increasing constipation up to part of fecal impaction. PHYSICAL EXAMINATION GENERAL: She is awake, alert, and oriented, and obese. VITAL SIGNS: Stable with a temperature of 98.4, pulse 68 per minute and regular, respiratory rate 17, blood pressure 133/59. She weighs 216 pounds and appears obese. HEENT: She has moderate pallor. There being no icterus, lymphadenopathy, or peripheral edema. CARDIOVASCULAR: Normal heart sounds. No murmurs on auscultation. LUNGS: Reveals normal breath sounds with expiratory wheeze. ABDOMEN: Soft, obese, nontender. Liver and spleen are not palpable. Bowel sounds normal. DIAGNOSTIC STUDIES LABORATORY RESULTS: Shows a hemoglobin of 8, baseline hemoglobin is 12.8. The red cell indices are hypochromic microcytic. The patient also has leukocytosis, white count of 19,000; platelet count of 341. Serum chemistry shows normal BUN 23 and creatinine 1.6. Sodium 133, potassium 3.7. Albumin is 4.3 yesterday and 3.1 today. LFTs are normal. The most significant finding the patient has transferrin saturation of 3, ferritin of 6, and high TIBC indicating virtually no iron reserves. CLINICAL IMPRESSION 1. The patient most likely has spurious diarrhea as a result of fecal loading that got worse after taking fevx-cjq-iytmfat Imodium. She therefore needs daily long-term laxative. She has been started on MiraLAX and has already been started on Linzess by Dr. Greenfield. 2. Evaluation of iron deficiency anemia. Her last colonoscopy being about 7 years ago; however; this will be best done as an outpatient or close to the patient being discharged. 3. Significant osteoarthrosis involving the hips. Appropriate orthopedic consultation ordered by Dr. Greenfield. 4. We will also give the patient's intravenous ferrous gluconate for the next 2 to 3 days. A diagnostic upper endoscopy is being done tomorrow and colonoscopy will be performed as an outpatient or later when she is able to tolerate the prep. 5. The above plan was discussed with the patient in the presence for younger sister who was in the room. Thank you for asking me to see this pleasant woman. I appreciate the consult. Dictated by... Praveen Dinero/joel TD: 10/26/2016 03:18 JOB #: [id number] CC: Brenda Bhakta M.D. Unit #: [id number] #: [id number] Patient: KRISTEL HALEY CONSULTATION REPORT Page 1 of 1 X Braydon Nye MD X CONSULTATION REPORT
--- NOTE | ~2016-10-23 | CR169 ---
[facility] A Service of [facility] RADIOLOGY TEXT RESULTS PATIENT: KRISTEL HALEY LOCATION: [facility] 323-01 : [birth year] UNIT #: [id number] AGE: [address]: Evelina Mejia MD SEX: F ORDER DR: [id number] [facility] [address] [facility]. [place], [place] [address] [id number] MR#: [id number] Acc #: [id number] NAME: KRISTEL HALEY. : 1945 SEX: F STUDY DATE/TIME: 10/24/2016 14:33 UNIT: [address] ROOM: [facility] STUDY DESCRIPTION: CR Knee 2 Views Lt Attending Physician: Evelina Mejia M.D. Ordering Physician: Cely Greenfield M.D. Primary Care Physician: No Primary Care Physician MEDICAL IMAGING REPORT This report is preliminary unless electronic signature is present EXAM Left knee, AP and lateral, 2 views; 10/24/16. COMPARISON 09/05/15 HISTORY Pain, new onset today. No known injury. FINDINGS Redemonstrated advanced osteoarthritis without fracture, joint effusion or other acute abnormality. Dictated by... Harrison Zacarias M.D. THIS IS AN ELECTRONICALLY VERIFIED REPORT Harrison Zacarias M.D. at 10/24/2016 10:46 PM ALEXIA/isamar TD: 10/24/2016 21:50 JOB #: [id number] MEDICAL IMAGING REPORT Page 1 of 1 COPY
--- NOTE | ~2016-10-23 | EKG ---
PATIENT: KRISTEL HALEY UNIT #: [id number] Ventricular Rate: 69 BPM Atrial Rate: 69 BPM P-R Interval: 108 ms QRS Duration: 86 ms Q-T Interval: 384 ms QTC Calculation(Bezet): 411 ms P [place]: 48 degrees Calculated R [place]: 60 degrees Calculated T [place]: 1 degrees Diagnosis Line: Sinus rhythm with short SC Diagnosis Line: Otherwise normal ECG Diagnosis Line: When compared with ECG of 01-NOV-2016 17:54, Diagnosis Line: T wave inversion now evident in Inferior leads Diagnosis Line: Confirmed by DIGNA GRACE MD ([id number]) on Diagnosis Line: 11/02/2016 10:09:16 PM INTERPRETING MD: SHELIA
--- NOTE | ~2016-10-23 | EKG ---
PATIENT: KRISTEL HALEY UNIT #: [id number] Ventricular Rate: 85 BPM Atrial Rate: 85 BPM P-R Interval: 122 ms QRS Duration: 76 ms Q-T Interval: 354 ms QTC Calculation(Bezet): 421 ms P [place]: 73 degrees Calculated R [place]: 55 degrees Calculated T [place]: 136 degrees Diagnosis Line: Normal sinus rhythm with sinus arrhythmia Diagnosis Line: T wave abnormality, consider lateral ischemia Diagnosis Line: Abnormal ECG Diagnosis Line: No previous ECGs available Diagnosis Line: Confirmed by EUGENE MEDINA MD ([id number]) on 10/25/2016 Diagnosis Line: 4:22:47 PM INTERPRETING MD: CAROL ALVAREZ
--- NOTE | ~2016-10-23 | CO ---
Unit #: [id number] #: [id number] Patient: KRISTEL HALEY [id number] [address] [place], [place] [address] [id number] MR#: [id number] NAME: KRISTEL HALEY ROOM: 323 Age: 70 Sex: F Admission Date: 10/23/2016 : 1945 Attending Physician: Cely Greenfield M.D. Primary Care Physician: No Primary Care Physician CONSULTATION REPORT HISTORY Ms. Haley is a 70-year-old white female who has been seen by Dr. Sawyer in the past for obstructive sleep apnea and COPD. I do not know the severity of her sleep apnea or her COPD, but she is intolerant to CPAP. She was admitted with abdominal pain. CT scan of the abdomen and pelvis showed a large fecal burden throughout the colon in keeping with constipation. Her hematocrit on admission was 35 but fell to 26 the following day. Her fluid balance is positive over the last week. She apparently underwent transfusion of 2 units, underwent upper GI endoscopy, which just revealed some mild gastritis, no active bleeding. She had been scheduled to have a colonoscopy and was getting prepped but apparently became more short of breath this morning and anxious and did not sleep any last night because she was up taking her bowel prep. We were called to see the patient. She had been scheduled possibly for either a stress test or cardiac cath. She currently denies any chest pain. She has no purulent sputum. She has been noted to be wheezing and is being treated with inhaled bronchodilators, inhaled corticosteroids and parenteral steroids. No chest x-ray has been done. CURRENT MEDICATIONS Her current medications in the hospital include Cardizem, Phenergan, Dulera, aspirin, Protonix, atorvastatin, Cymbalta, levothyroxine, MiraLAX, triamcinolone ointment, Norvasc, Solu-Medrol, Daliresp, DuoNeb, nicotine patch. PAST MEDICAL HISTORY Significant for a normal left ventricular ejection fraction, diastolic dysfunction, tbvsxevw-cx-wozioo tricuspid regurgitation with a right ventricular systolic pressure calculated at 58, history of hypertension, hyperlipidemia, hypothyroidism, irritable bowel, psoriasis, GERD, depression, MEDHAT - noncompliant/intolerant to CPAP, morbid obesity, immobility syndrome, COPD and tobacco use. SURGICAL PROCEDURES EGD, left breast biopsy, left ankle surgery. ALLERGIES Sulfa and cimetidine. HOME MEDICATIONS Synthroid, aspirin, Prilosec, atorvastatin, Cymbalta, diphenhydramine and Unit #: [id number] #: [id number] Patient: KRISTEL HALEY a pain pill. She also says she takes nebulizer treatments 4 times a day and Symbicort 2 puffs twice a day. FAMILY HISTORY Mother had COPD. No cardiac history. SOCIAL HISTORY Lives with son. Smokes 1 pack of cigarettes a day. Has been smoking since age 13. Denies alcohol or illicit drugs. Uses a wheelchair. She is fairly much combined to bed. REVIEW OF SYSTEMS A 10-point system is otherwise negative. PHYSICAL EXAMINATION GENERAL: White female, obese, lying in bed, able to speak in complete sentences, wearing oxygen, not using accessory muscles. VITAL SIGNS: Blood pressure 168/75, pulse 65, respiratory rate 18, afebrile. HEENT: Normocephalic, atraumatic. Pupils are equal, round and reactive. Sclerae are nonicteric. Nasal passages are patent. Oral cavity small. Edentulous. NECK: Supple. Trachea midline. No cervical, supraclavicular lymphadenopathy. RESPIRATORY: Lungs revealed expiratory wheeze bilaterally. CARDIAC: Regular rate and rhythm. A 2/6 systolic murmur. ABDOMEN: Nontender. Bowel sounds are present. No hepatosplenomegaly. EXTREMITIES: Without clubbing, cyanosis or edema. SKIN: She has psoriatic plaques over her body. NEUROLOGIC: She is awake, oriented x3. No major distress. Able to move all extremities. DIAGNOSTIC STUDIES LABORATORY STUDIES: Reviewed. No blood gases done. BMP unremarkable. Glucose 178. White blood cell count 13,400, current hematocrit 34.3, up from 24.4 status post 2 units of blood over the last 2 days. MCV is 67.6. Platelet count normal. IMAGING: No chest x-rays done. IMPRESSION 1. COPD exacerbation with presumed respiratory failure. 2. Anemia. 3. Obstructive sleep apnea, intolerant to CPAP. 4. Pulmonary hypertension. Dictated by... Robert Ahn M.D. Zafar TD: 10/30/2016 13:42 JOB #: [id number] Unit #: [id number] #: [id number] Patient: KRISTEL HALEY CONSULTATION REPORT Page 1 of 1 X Robert Ahn MD CONSULTATION REPORT
--- NOTE | ~2016-10-23 | EKG ---
PATIENT: KRISTEL HALEY UNIT #: [id number] Ventricular Rate: 90 BPM Atrial Rate: 90 BPM P-R Interval: 114 ms QRS Duration: 82 ms Q-T Interval: 362 ms QTC Calculation(Bezet): 442 ms P [place]: 23 degrees Calculated R [place]: 5 degrees Calculated T [place]: 55 degrees Diagnosis Line: Normal sinus rhythm Diagnosis Line: Normal ECG Diagnosis Line: When compared with ECG of 30-OCT-2016 05:54, Diagnosis Line: Premature supraventricular complexes are no longer Diagnosis Line: Present Diagnosis Line: Confirmed by DIGNA GRACE MD ([id number]) on Diagnosis Line: 11/01/2016 7:17:31 PM INTERPRETING MD: SHELIA
[~2016-10-23 03:53] MED LIST: ALBUTEROL0.83 MG/ML IH; ALEVE; ALEVE220 M1 PO; ALLEGRA60 M1 PO; ALPRAZOLAM PO; ATENOLOL; CELEXA PO; COLESTID PO; DICYCLOMINE HCL20 MG PO; EFFEXOR XR PO; FISH OIL 1,0001 CAP PO; HCTZ PO; HUMIRA; HYDROCODON-ACE1 EAC7 PO; LEVOTHROID50 MCG PO; LEVOTHYROXINE50 MC1 PO; LEVOXYL; LIPITOR PO; LOMOTIL TABLET1 TAB PO; LOMOTIL WHITE2.5 MG PO; METHOTREXATE2.5 MG PO; NEXIUM PO; PRILOSEC; PRILOSEC PO; PRILOSEC20 M1 PO; PROZAC; PROZAC PO; REMICADE; SIMVASTATIN40 MG PO; SPIRIVA18 MCG INH; SYNTHROID; VICODIN 5/500 T1 TAB PO; XYZAL; ZOCOR PO; [UNRECOGNIZED DRUG - OTHER]; [UNRECOGNIZED DRUG - OTHER] INJ
[2016-10-23] MEDS ORDERED: ATORVASTATIN CA80 MG PO (04:04)
[2016-10-23] MEDS ORDERED: SYNTHROID75 MCG PO (04:04)
[2016-10-23] MEDS ORDERED: LO-DOSE ASPIRIN81 M1 PO (04:04)
[2016-10-23] MEDS ORDERED: PRILOSEC PO (04:04)
[2016-10-23] MEDS ORDERED: DULOXETINE HCL60 MG PO (04:05)
[2016-10-23] MEDS ORDERED: BENADRYL25 MG PO (04:05)
[2016-10-23] MEDS ORDERED: [UNRECOGNIZED DRUG - REMARK] (04:05)
[2016-10-23 05:03] LABS: BASOPHIL# 0.2 X10e3 (0-0.3); BASOPHIL% 0.8 % (0-2.5); EOSINOPHIL# 0.1 X10e3 (0-0.7); EOSINOPHIL% 0.6 % (0.0-7.0); HEMATOCRIT 35.2 % (35.0-45.0); HEMOGLOBIN 10.4 gm/dL (12.0-16.0); LYMPHOCYTE# 3.2 X10e3 (1.0-3.5); LYMPHOCYTE% 16.3 % (17.0-45.0); MEAN CELL VOLUME 60.1 FL (83-96); MEAN CORPUSCULAR HEMOGLOBIN 17.7 PG (28-34); MEAN CORPUSCULAR HGB CONC 29.5 g/dL (30-36); MEAN PLATELET VOLUME 9.4 FL (6.5-11.5); MONOCYTE# 1.4 X10e3 (0-1.0); MONOCYTE% 7.3 % (3.0-12.0); NEUTROPHIL# 14.6 X10e3 (1.5-7.1); PLATELET COUNT 341 X10e3 (140-420); RED BLOOD COUNT 5.85 X10e (3.90-5.30); RED CELL DISTRIBUTION WIDTH 19.8 % (11.0-15.5); WHITE BLOOD COUNT 19.4 X10e3 (4.0-10.5)
[2016-10-23 05:10] LABS: DIFF IND YES
[2016-10-23 05:26] LABS: ALBUMIN SERUM 4.3 g/dL (3.5-5.0); ALKALINE PHOSPHATASE 117 U/L (32-92); ALT (SGPT) 18 U/L (10-40); AST (SGOT) 25 U/L (10-42); BILIRUBIN,TOTAL 0.6 mg/dL (0.2-2.0); BLOOD UREA NITROGEN 23 mg/dL (9-23); BUN/CREATININE RATIO 14.37; CALCIUM SERUM 9.2 mg/dL (8.4-10.2); CARBON DIOXIDE 27 mmol/L (22-31); CHLORIDE 94 mmol/L (100-111); CREATININE SERUM 1.6 mg/dL (0.6-1.4); GLOM FILT RATE Estimated 32.6 mL/min (>60); GLUCOSE FASTING 162 mg/dL (70-110); LIPASE 21 U/L (22-51); POTASSIUM 3.7 mmol/L (3.5-5.1); PROTEIN TOTAL SERUM 8.3 g/dL (6.0-8.3); SODIUM 133 mmol/L (135-145)
[2016-10-23 05:31] LABS: PLATELET ESTIMATE NORMAL (NORMAL)
[2016-10-23 05:32] LABS: ANISOCYTOSIS MOD; HYPOCHROMIA MOD; OVALOCYTES PRESENT; POLYCHROMASIA SL
[2016-10-23 05:33] LABS: SCHISTOCYTES PRESENT
[2016-10-23 05:35] LABS: BILIRUBIN, DIRECT <0.1 mg/dL (0.0-0.2); BILIRUBIN,INDIRECT 0.5 mg/dL (0.0-0.9)
[2016-10-23 06:03] LABS: URINE SOURCE CATH
[2016-10-23 06:20] LABS: URINE APPEARANCE CLEAR; URINE BILIRUBIN NEG (NEG); URINE BLOOD NEG (NEG); URINE COLOR YELLOW; URINE GLUCOSE NEG (NEG); URINE KETONE NEG (NEG); URINE LEUKOCYTE ESTERASE NEG (NEG); URINE NITRATE NEG (NEG); URINE PH 5.5 (5-8); URINE PROTEIN NEG (NEG); URINE SPECIFIC GRAVITY 1.011 (1.003-1.035); URINE UROBILINOGEN 0.2 MG/DL (NEG)
[2016-10-23 06:22] LABS: CULTURE INDICATED? NO
[2016-10-23 10:02] LABS: %MB 3.6 % (0.0-4.0); MB 2.7 ng/ml
[2016-10-23 13:12] LABS: IRON SERUM 13 ug/dL (28-170); TOTAL IRON BINDING CAPACITY 490 ug/dL (269-535); TRANSFERRIN 350 mg/dL (192-382); TRANSFERRIN SATURATION 3 % (20-50)
[2016-10-23 13:51] LABS: FOLATE (FOLIC ACID) 13.8 ng/mL (>5.8)
[2016-10-23 21:46] LABS: %MB 2.8 % (0.0-4.0); MB 4.8 ng/ml
[2016-10-24 06:58] LABS: ALBUMIN SERUM 3.1 g/dL (3.5-5.0); BILIRUBIN,TOTAL 0.8 mg/dL (0.2-2.0); BUN/CREATININE RATIO 19.16; CALCIUM SERUM 8.3 mg/dL (8.4-10.2); CREATININE SERUM 1.2 mg/dL (0.6-1.4); GLOM FILT RATE Estimated 46.1 mL/min (>60); POTASSIUM 3.6 mmol/L (3.5-5.1); PROTEIN TOTAL SERUM 5.9 g/dL (6.0-8.3)
[2016-10-24 09:02] LABS: HEMATOCRIT 26.7 % (35.0-45.0); MEAN CELL VOLUME 60.7 FL (83-96); MEAN CORPUSCULAR HEMOGLOBIN 18.2 PG (28-34); MEAN PLATELET VOLUME 9.2 FL (6.5-11.5); RED BLOOD COUNT 4.39 X10e (3.90-5.30); RED CELL DISTRIBUTION WIDTH 19.4 % (11.0-15.5); WHITE BLOOD COUNT 16.9 X10e3 (4.0-10.5)
[2016-10-25 05:26] LABS: HEMATOCRIT 24.7 % (35.0-45.0); HEMOGLOBIN 7.4 gm/dL (12.0-16.0); MEAN CELL VOLUME 60.5 FL (83-96); MEAN CORPUSCULAR HEMOGLOBIN 18.1 PG (28-34); MEAN CORPUSCULAR HGB CONC 29.9 g/dL (30-36); MEAN PLATELET VOLUME 9.2 FL (6.5-11.5); RED BLOOD COUNT 4.08 X10e (3.90-5.30); WHITE BLOOD COUNT 10.5 X10e3 (4.0-10.5)
[2016-10-25 05:50] LABS: CALCIUM SERUM 8.2 mg/dL (8.4-10.2); GLOM FILT RATE Estimated 57.5 mL/min (>60); POTASSIUM 3.4 mmol/L (3.5-5.1)
[2016-10-25 14:55] LABS: CHOLESTEROL 103 mg/dL (0-200); HDL CHOLESTEROL 41 mg/dL (35-95); LDL CHOLESTEROL 41 mg/dL (-130); LDL/HDL RATIO 1 RATIO (0-4); TRIGLYCERIDES 106 mg/dL (10-160)
[2016-10-26 08:03] LABS: HEMATOCRIT 25.8 % (35.0-45.0); HEMOGLOBIN 7.6 gm/dL (12.0-16.0); MEAN CELL VOLUME 60.8 FL (83-96); MEAN CORPUSCULAR HEMOGLOBIN 17.9 PG (28-34); MEAN CORPUSCULAR HGB CONC 29.5 g/dL (30-36); MEAN PLATELET VOLUME 9.2 FL (6.5-11.5); RED BLOOD COUNT 4.25 X10e (3.90-5.30); RED CELL DISTRIBUTION WIDTH 19.7 % (11.0-15.5); WHITE BLOOD COUNT 15.7 X10e3 (4.0-10.5)
[2016-10-26 08:24] LABS: CALCIUM SERUM 8.9 mg/dL (8.4-10.2); GLOM FILT RATE Estimated 57.5 mL/min (>60)
[2016-10-27 04:49] LABS: HEMATOCRIT 24.5 % (35.0-45.0); HEMOGLOBIN 7.3 gm/dL (12.0-16.0); MEAN CORPUSCULAR HEMOGLOBIN 18.1 PG (28-34); MEAN CORPUSCULAR HGB CONC 29.7 g/dL (30-36); MEAN PLATELET VOLUME 9.1 FL (6.5-11.5); RED BLOOD COUNT 4.02 X10e (3.90-5.30); RED CELL DISTRIBUTION WIDTH 19.7 % (11.0-15.5); WHITE BLOOD COUNT 15.3 X10e3 (4.0-10.5)
[2016-10-27 05:37] LABS: BUN/CREATININE RATIO 23.33; CALCIUM SERUM 8.6 mg/dL (8.4-10.2); CREATININE SERUM 0.9 mg/dL (0.6-1.4); GLOM FILT RATE Estimated 65.3 mL/min (>60); POTASSIUM 3.9 mmol/L (3.5-5.1)
[2016-10-28 06:33] LABS: HEMATOCRIT 24.4 % (35.0-45.0); HEMOGLOBIN 7.4 gm/dL (12.0-16.0); MEAN CELL VOLUME 60.9 FL (83-96); MEAN CORPUSCULAR HEMOGLOBIN 18.5 PG (28-34); MEAN CORPUSCULAR HGB CONC 30.3 g/dL (30-36); MEAN PLATELET VOLUME 9.2 FL (6.5-11.5); RED CELL DISTRIBUTION WIDTH 20.1 % (11.0-15.5); WHITE BLOOD COUNT 15.2 X10e3 (4.0-10.5)
[2016-10-28 06:59] LABS: CALCIUM SERUM 8.8 mg/dL (8.4-10.2); GLOM FILT RATE Estimated 57.5 mL/min (>60); POTASSIUM 3.8 mmol/L (3.5-5.1)
[2016-10-29 10:46] LABS: HEMOGLOBIN 10.5 gm/dL (12.0-16.0); MEAN CELL VOLUME 66.6 FL (83-96); MEAN CORPUSCULAR HEMOGLOBIN 20.6 PG (28-34); MEAN PLATELET VOLUME 8.7 FL (6.5-11.5); RED BLOOD COUNT 5.11 X10e (3.90-5.30); RED CELL DISTRIBUTION WIDTH 25.7 % (11.0-15.5); WHITE BLOOD COUNT 13.7 X10e3 (4.0-10.5)
[2016-10-29 11:12] LABS: BUN/CREATININE RATIO 23.33; CALCIUM SERUM 8.5 mg/dL (8.4-10.2); CREATININE SERUM 1.2 mg/dL (0.6-1.4); GLOM FILT RATE Estimated 46.1 mL/min (>60); POTASSIUM 3.7 mmol/L (3.5-5.1)
[2016-10-30 05:34] LABS: HEMATOCRIT 34.3 % (35.0-45.0); HEMOGLOBIN 10.5 gm/dL (12.0-16.0); MEAN CELL VOLUME 67.6 FL (83-96); MEAN CORPUSCULAR HEMOGLOBIN 20.7 PG (28-34); MEAN CORPUSCULAR HGB CONC 30.6 g/dL (30-36); MEAN PLATELET VOLUME 9.6 FL (6.5-11.5); RED BLOOD COUNT 5.08 X10e (3.90-5.30); RED CELL DISTRIBUTION WIDTH 26.4 % (11.0-15.5); WHITE BLOOD COUNT 13.4 X10e3 (4.0-10.5)
[2016-10-30 06:23] LABS: CALCIUM SERUM 8.4 mg/dL (8.4-10.2); CREATININE SERUM 0.9 mg/dL (0.6-1.4); GLOM FILT RATE Estimated 65.3 mL/min (>60); POTASSIUM 3.7 mmol/L (3.5-5.1)
[2016-10-30 09:25] LABS: ARTERIAL BLD GAS O2 SATURATION 95.7 % (90.0-100.0); ARTERIAL BLOOD GAS CARBOXY HB 1.1 %sat (0.0-9.0); ARTERIAL BLOOD GAS HCO3 27.5 mmol/L; ARTERIAL BLOOD GAS PCO2 38.2 mmHg (35.0-45.0); ARTERIAL BLOOD GAS PO2 78.9 mmHg (80.0-100); ARTERIAL BLOOD GAS pH 7.466 (7.350-7.450)
[2016-10-30 09:26] LABS: ARTERIAL BLOOD GAS ALLEN TEST N; ARTERIAL BLOOD GAS ART SITE RIGHT RADIAL; ARTERIAL BLOOD GAS DELIVERY NASAL CANNULA; ARTERIAL BLOOD GAS MET HB 1.2 %sat (0.0-2.0); ARTERIAL DRAW? YES
[2016-10-31 06:12] LABS: HEMATOCRIT 35.3 % (35.0-45.0); HEMOGLOBIN 10.8 gm/dL (12.0-16.0); MEAN CELL VOLUME 68.8 FL (83-96); MEAN CORPUSCULAR HGB CONC 30.6 g/dL (30-36); MEAN PLATELET VOLUME 9.6 FL (6.5-11.5); RED BLOOD COUNT 5.14 X10e (3.90-5.30); RED CELL DISTRIBUTION WIDTH 28.1 % (11.0-15.5); WHITE BLOOD COUNT 12.9 X10e3 (4.0-10.5)
[2016-10-31 06:48] LABS: BUN/CREATININE RATIO 27.77; CALCIUM SERUM 8.2 mg/dL (8.4-10.2); CREATININE SERUM 0.9 mg/dL (0.6-1.4); GLOM FILT RATE Estimated 65.3 mL/min (>60); POTASSIUM 3.6 mmol/L (3.5-5.1)
[2016-11-01 06:26] LABS: HEMATOCRIT 35.7 % (35.0-45.0); HEMOGLOBIN 10.9 gm/dL (12.0-16.0); MEAN CELL VOLUME 69.2 FL (83-96); MEAN CORPUSCULAR HGB CONC 30.4 g/dL (30-36); MEAN PLATELET VOLUME 9.2 FL (6.5-11.5); RED BLOOD COUNT 5.16 X10e (3.90-5.30); RED CELL DISTRIBUTION WIDTH 28.9 % (11.0-15.5); WHITE BLOOD COUNT 14.7 X10e3 (4.0-10.5)
[2016-11-01 07:11] LABS: CALCIUM SERUM 8.2 mg/dL (8.4-10.2); GLOM FILT RATE Estimated 57.5 mL/min (>60); POTASSIUM 3.7 mmol/L (3.5-5.1)
[2016-11-01 18:51] LABS: CK TOTAL 44 IU/L (26-140)
[2016-11-02 07:05] LABS: HEMATOCRIT 36.4 % (35.0-45.0); HEMOGLOBIN 11.2 gm/dL (12.0-16.0); MEAN CORPUSCULAR HEMOGLOBIN 21.2 PG (28-34); MEAN CORPUSCULAR HGB CONC 30.7 g/dL (30-36); MEAN PLATELET VOLUME 9.5 FL (6.5-11.5); RED BLOOD COUNT 5.27 X10e (3.90-5.30); RED CELL DISTRIBUTION WIDTH 30.4 % (11.0-15.5); WHITE BLOOD COUNT 15.6 X10e3 (4.0-10.5)
[2016-11-02 07:14] LABS: PARTIAL THROMBOPLASTIN TIME 26.8 SECONDS (23.5-31.3); PROTHROMBIN TIME (PATIENT) 10.9 SECONDS (10.0-11.7)
[2016-11-02 07:28] LABS: CALCIUM SERUM 8.4 mg/dL (8.4-10.2); GLOM FILT RATE Estimated 57.5 mL/min (>60); POTASSIUM 3.4 mmol/L (3.5-5.1)
[2016-11-03 06:05] LABS: CREATININE SERUM 0.9 mg/dL (0.6-1.4); GLOM FILT RATE Estimated 65.3 mL/min (>60)
[2016-11-04] MEDS ORDERED: TRIAMCINOLONE AC1 GM TOP (13:31)
[2016-11-04] MEDS ORDERED: AMIODARONE HCL200 MG PO (13:40)
[2016-11-04] MEDS ORDERED: PHENERGAN12.5 MG PO (13:43)
[2016-11-04] MEDS ORDERED: ATORVASTATIN CA80 MG PO (13:43)
[2016-11-04] MEDS ORDERED: NICOTINE PATCH1 EAC1 TD (13:44)
[2016-11-04] MEDS ORDERED: MIRALAX17 GM DOB (13:45)
[2016-11-04] MEDS ORDERED: LASIX PO (13:45)
[2016-11-04] MEDS ORDERED: DULERA 200 MCG/13 GM INH (13:45)
[2016-11-04] MEDS ORDERED: HYDRALAZINE HCL50 MG PO (13:46)
[2016-11-04] MEDS ORDERED: MELATONIN3 MG PO (13:47)
[2016-11-04] MEDS ORDERED: DALIRESP500 MCG PO (13:49)
[2016-11-04] MEDS ORDERED: K-DUR20 ME1 PO (13:51)
[2016-11-04] MEDS ORDERED: SYNTHROID25 MCG PO (13:51)
[2016-11-04] MEDS ORDERED: HYDROCODON-ACE1 EAC7 PO (13:54)
[2016-11-04] MEDS ORDERED: ELIQUIS2.5 MG PO (14:18)
== END 2016-11-04 15:42 | disposition home or self-care (01) | DRG 392 ==
LOC: CED 03:53 → C3A PCU 08:30 → CED 08:31 → C3A PCU 08:31
PROVIDERS: Emergency Medicine; Family Medicine; Internal Medicine Cardiovascular Disease; Internal Medicine Gastroenterology
PROC: B246ZZZ Ultrasonography of Right and Left Heart (ICD-10-PCS; 2016-10-24)
PROC: 0DJ08ZZ Inspection of Upper Intestinal Tract, Via Natural or Artificial Opening Endoscopic (ICD-10-PCS; 2016-10-25)
PROC: 0DJ08ZZ Inspection of Upper Intestinal Tract, Via Natural or Artificial Opening Endoscopic (ICD-10-PCS; 2016-10-25)
PROC: 30233N1 Transfusion of Nonautologous Red Blood Cells into Peripheral Vein, Percutaneous Approach (ICD-10-PCS; principal; 2016-10-28)
PROC: 0DBM8ZX Excision of Descending Colon, Via Natural or Artificial Opening Endoscopic, Diagnostic (ICD-10-PCS; 2016-10-30 13:46)
PROC: 4A023N7 Measurement of Cardiac Sampling and Pressure, Left Heart, Percutaneous Approach (ICD-10-PCS; 2016-11-02)
PROC: B211YZZ Fluoroscopy of Multiple Coronary Arteries using Other Contrast (ICD-10-PCS; 2016-11-02)
PROC: B215YZZ Fluoroscopy of Left Heart using Other Contrast (ICD-10-PCS; 2016-11-02)
DX: K58.1 Irritable bowel syndrome with constipation (principal); J96.10 Chronic respiratory failure, unspecified whether with hypoxia or hypercapnia; I27.2 Other secondary pulmonary hypertension; D62 Acute posthemorrhagic anemia; E66.01 Morbid (severe) obesity due to excess calories; I36.1 Nonrheumatic tricuspid (valve) insufficiency; F41.9 Anxiety disorder, unspecified; E03.9 Hypothyroidism, unspecified; J44.9 Chronic obstructive pulmonary disease, unspecified; F17.210 Nicotine dependence, cigarettes, uncomplicated; I10 Essential (primary) hypertension; E78.5 Hyperlipidemia, unspecified; K21.9 Gastro-esophageal reflux disease without esophagitis; F32.9 Major depressive disorder, single episode, unspecified; L40.50 Arthropathic psoriasis, unspecified; M17.0 Bilateral primary osteoarthritis of knee; G47.33 Obstructive sleep apnea (adult) (pediatric); K29.70 Gastritis, unspecified, without bleeding; M62.3 Immobility syndrome (paraplegic); K57.30 Diverticulosis of large intestine without perforation or abscess without bleeding; D12.4 Benign neoplasm of descending colon; Z88.2 Allergy status to sulfonamides; Z79.82 Long term (current) use of aspirin; I48.91 Unspecified atrial fibrillation
CPT/HCPCS: 36415; 36600; 51701; 71010; 73560; 74176; 80048; 80053; 80061; 80076; 81003; 82274; 82550; 82553; 82565; 82607; 82728; 82746; 82803; 83540; 83550; 83605; 83690; 83735; 84443; 84484; 85025; 85027; 85610; 85652; 85730; 86140; 86850; 86900; 86901; 86923; 87040; 88305; 93005; 93306; 94640; 94664; 94760; 96361; 96365; 96375; 97110; 97163; 97167; 97530; 97535; 99285; C1760; C1769; G8978-GP; G8979-GP; G8987-GO; G8988-GO; J0360; J0461; J1644; J1940; J2060; J2250; J2270; J2543; J2916; J2920; J2930; J3010; P9016